=== PATIENT | male | born 1990 | race Caucasian/White ===

== ENCOUNTER 2019-04-30 08:40 | Emergency (ER) | payer OTHER ==
[2019-04-30 08:46] VITALS: TEMP 98.2
--- NOTE | 2019-04-30 09:03 | ED ---
General Adult HPI - General Chief complaint: Skin/Abscess/Foreign Body Stated complaint: Foot pain Time Seen by Provider: 04/30/19 08:48 Source: patient, RN notes reviewed Mode of arrival: ambulatory Limitations: no limitations - History of Present Illness Initial comments: This is a 28-year-old male with a benign past medical history other than being a smoker of one to one half packs of cigarettes per day also a family history of clots who presents with complaints of acid yesterday of left foot swelling. He states he could not get his work boot on this morning he states his toes were erythematous T has some erythema going up to his medial thigh on the left side since yesterday. He does state that he was hunting the other day any did have a case of sweats please had other than some sinus congestion that he believes is from ALLERGIES he is had no earache sore throat cough phlegm production fevers chills nausea vomiting and just the one episode of sweats. No other modifying factors at this time the patient does work as a production truck driver driving gravel trains and states she sits for long periods of time and is concerned about DVT. - Related Data Home Medications Medication Instructions Recorded Confirmed Buprenorphine HCl/Naloxone HCl 1 film SUBLINGUAL BID 04/30/19 04/30/19 [Suboxone 4 mg-1 mg Sl Film] Dextroamphetamine/Amphetamine 30 mg PO TID 04/30/19 04/30/19 [Dextroamp-Amphetamin 30 mg Tab] Allergies Allergy/AdvReac Type Severity Reaction Status Date / Time Penicillins Allergy Unknown Verified 04/30/19 09:21 Childhood Review of Systems ROS Statement: Those systems with pertinent positive or pertinent negative responses have been documented in the HPI. ROS Other: All systems not noted in ROS Statement are negative. Past Medical History Past Medical History: No Reported History History of Any Multi-Drug Resistant Organisms: None Reported Additional Past Surgical History / Comment(s): back surgery s/p fall back injury Past Psychological History: No Psychological Hx Reported Smoking Status: Current every day smoker Past Alcohol Use History: Rare Past Drug Use History: None Reported General Exam - General Exam Comments Initial Comments: This a well-developed well-nourished awake alert oriented 3 male Limitations: no limitations General appearance: alert, in no apparent distress Head exam: Present: atraumatic, normocephalic, normal inspection Eye exam: Present: normal appearance, PERRL, EOMI. Absent: scleral icterus, conjunctival injection, periorbital swelling ENT exam: Present: normal exam, mucous membranes moist Neck exam: Present: normal inspection. Absent: tenderness, meningismus, lymphadenopathy Respiratory exam: Present: normal lung sounds bilaterally. Absent: respiratory distress, wheezes, rales, rhonchi, stridor Cardiovascular Exam: Present: regular rate, normal rhythm, normal heart sounds. Absent: systolic murmur, diastolic murmur, rubs, gallop, clicks GI/Abdominal exam: Present: soft, normal bowel sounds. Absent: distended, tenderness, guarding, rebound, rigid Extremities exam: Present: full ROM, normal capillary refill, other (Some localized erythema seen over the toes no overt edema seen at this time approximately is no palpable cords. Capillary refills less than 2 seconds.). Absent: tenderness, pedal edema, joint swelling, calf tenderness Back exam: Present: normal inspection Neurological exam: Present: alert, oriented X3, CN II-XII intact Psychiatric exam: Present: normal affect, normal mood Skin exam: Present: warm, dry, intact, normal color. Absent: rash Course Vital Signs 04/30/19 08:42 Temperature 98.2 F Pulse Rate 108 H Respiratory 18 Rate Blood Pressure 149/76 O2 Sat by Pulse 99 Oximetry Procedures - Smoking Cessation Time Spent Discussing Smoking Cessation w/Patient (Minutes): 3 Patient Acknowledges Need for Cessation: Yes Medical Decision Making - Medical Decision Making I did discuss the findings with the patient family members or present. The ultrasound was negative for evidence of DVT we did discuss smoking cessation and the benefits thereof he does have a strong family history diabetes Accu-Chek is 98 this time. I did recommend compression stockings due to his prolonged episodes of sitting in his truck. He is to follow-up with his doctor for further evaluation he is in agreement with this. - Lab Data Lab Results 04/30/19 Range/Units 10:00 POC Glucose (mg/dL) 90 (75-99) mg/dL POC Glu Cell Technician ID Latricia Campbell - Radiology Data Radiology results: report reviewed (I did review the imaging and report no acute findings.), image reviewed Disposition Clinical Impression: Peripheral edema, Smoking Disposition: HOME SELF-CARE Condition: Good Instructions (If sedation given, give patient instructions): Leg Edema (ED), How to Stop Smoking (ED) Additional Instructions: Compression stockings are recommended, Is patient prescribed a controlled substance at d/c from ED?: No Referrals: Khadra Guzman MD [Primary Care Provider] - 1-2 days
--- NOTE | 2019-04-30 09:48 | US ---
EXAMINATION TYPE: US venous doppler duplex LE LT DATE OF EXAM: 04/30/2019 9:35 AM COMPARISON: NONE CLINICAL HISTORY: Left foot edema. SIDE PERFORMED: Left TECHNIQUE: The lower extremity deep venous system is examined utilizing real time linear array sonog lisa with graded compression, doppler sonography and color-flow sonography. VESSELS IMAGED: External Iliac Vein (EIV) Common Femoral Vein Deep Femoral Vein Greater Saphenous Vein * Femoral Vein Popliteal Vein Small Saphenous Vein * Proximal Calf Veins (* superficial vessels) Grayscale, color doppler, spectral doppler imaging performed of the deep veins of the left lower extr emity. There is normal flow, compressibility, vascular waveforms. Left Leg: Negative for DVT IMPRESSION: No sonographic evidence of deep venous arthrosis within the left lower extremity.
[2019-04-30 10:01] LABS: Glucose,Whole Blood 90 mg/dL (75-99)
[2019-04-30 10:57] VITALS: BP 140/74; PULSE 88; RESP 16
== END 2019-04-30 10:53 | disposition home or self-care (01) ==
LOC: EC 08:40
DX: R60.0 Localized edema (principal); F17.200 Nicotine dependence, unspecified, uncomplicated; Z71.6 Tobacco abuse counseling; Z88.0 Allergy status to penicillin
CPT/HCPCS: 36415; 99284